=== PATIENT | female | born 1945 | race Caucasian/White ===

== ENCOUNTER 2018-08-06 01:00 | Emergency (ER) | payer MEDICARE ==
[2018-08-06] MEDS ORDERED: Sodium Chloride 0.9% 2.5 ML Syringe FLUSH PRN (01:25)
[2018-08-06] MEDS ORDERED: Sodium Chloride 0.9% 10 ML Syringe FLUSH PRN (01:25)
[2018-08-06] MEDS ORDERED: Morphine 2 MG/ML Syringe IVPUSH ONE (01:26)
[2018-08-06] MEDS ORDERED: Ketorolac 30 MG/ML SDV IVPUSH ONE (01:26)
[2018-08-06] MEDS ORDERED: Sodium Chloride 0.9% 1,000 ML IV ONE (01:26)
[2018-08-06] MEDS ORDERED: Ondansetron 4 MG/2 ML SDV IVPUSH ONE (01:26)
--- NOTE | 2018-08-06 01:29 | EDM.PDOC ---
ED HPI GENERAL MEDICAL PROBLEM - General Chief Complaint: Abdominal Pain Time Seen by Provider: 08/06/18 01:10 - History of Present Illness INITIAL COMMENTS - FREE TEXT/NARRATIVE: HISTORY AND PHYSICAL: History of present illness: The patient is a 72-year-old female with no GI history no abdominal surgical history who presents with complaints of right flank pain radiating to the right upper quadrant that started about 3 hours ago while she was resting at home. Earlier today she had a normal day and last ate food at 6 PM, about 7 hours ago and it was only some crackers. The patient says the pain started in her back and came to the front and does not radiate to the left side does not go to her chest or her right lower abdomen. She's had no urinary complaints such as frequency urgency dysuria or immature area and she did have nausea without vomiting. She's had no diarrhea and has normal bowel movements the last being earlier today which was not black or bloody and not diarrhea. The patient describes the pain as a deep squeezing pain and she says that she is very gassy person but does not feel any differently today. Her abdomen does not feel bloated. She's had no fevers today and she is not taking any medications for these symptoms. She has no history of any food intolerance nor to she take a lot of antacids on a regular basis Review of systems: As per history of present illness and below otherwise all systems reviewed and negative. Past medical history: As per history of present illness and as reviewed below otherwise noncontributory. Surgical history: As per history of present illness and as reviewed below otherwise noncontributory. Social history: No reported history of drug or alcohol abuse. Family history: As per history of present illness and as reviewed below otherwise noncontributory. Physical exam: General: Well-developed well-nourished female who is nontoxic and vital signs are noted by me. She moves easily in the ED without any distress HEENT: Atraumatic, normocephalic, negative for conjunctival pallor or scleral icterus, mucous membranes moist, throat clear, neck supple, nontender, trachea midline. Lungs: Clear to auscultation, breath sounds equal bilaterally, chest nontender. Heart: S1S2, regular rate and rhythm no overt murmurs Abdomen: Soft, nondistended, bowel sounds are slightly hypoactive and there is no tympany on percussion. There is some mild tenderness in the epigastrium and off to the right side slightly on deep palpation without rebound or guarding and the remainder the abdomen is nontender Negative for masses or hepatosplenomegaly. Negative for costovertebral tenderness. Pelvis: Stable nontender. Genitourinary: Deferred. Rectal: Deferred. Extremities: Atraumatic, negative for cords or calf pain. Neurovascular unremarkable. Neuro: Awake, alert, oriented. Cranial nerves II through XII unremarkable. Cerebellum unremarkable. Motor and sensory unremarkable throughout. Exam nonfocal. Diagnostics: CBC CMP amylase lipase H. pylori UA with reflex CT scan of the abdomen and pelvis Therapeutics: IV fluids Zofran Toradol morphine--I was told by nursing that the patient did decline the morphine Discussed with the patient all testing results and will give her antibiotics for her UTI and send a urine culture. She is aware of the CT scan findings revealing one gallstone and the sliding hiatal hernia. I will give her referral to Dr. Doyle in the surgery clinic for further care of this and will advise her to eat a low-fat diet and offer some tramadol for home encase over-the- counter meds do not work Impression: Right flank/right abdominal pain, cholelithiasis, UTI Definitive disposition and diagnosis as appropriate pending reevaluation and review of above. abdominal area Pain Score (Numeric/FACES): 8 - Related Data Allergies Allergy/AdvReac Type Severity Reaction Status Date / Time No Known Allergies Allergy Verified 08/06/18 01:18 Home Meds: Home Meds . 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: Reports: Musculoskeletal History: Reports: None Neurological History: Reports: None Psychiatric History: Reports: None Endocrine/Metabolic History: Reports: None Hematologic History: Reports: None Immunologic History: Reports: None Oncologic (Cancer) History: Reports: None Dermatologic History: Reports: None - Infectious Disease History Infectious Disease History: Reports: None - Past Surgical History Head Surgeries/Procedures: Reports: None HEENT Surgical History: Reports: Tonsillectomy Social & Family History - Family History Family Medical History: Noncontributory - Tobacco Use Smoking Status *Q: Never Smoker - Caffeine Use Caffeine Use: Reports: Coffee - Recreational Drug Use Recreational Drug Use: No ED ROS GENERAL - Review of Systems Review Of Systems: ROS reveals no pertinent complaints other than HPI. ED EXAM, GENERAL - Physical Exam Exam: See Below (see Dictation) Course - Vital Signs Last Recorded V/S: Last Vital Signs Temp 36.1 C 08/06/18 01:15 Pulse 62 08/06/18 01:15 Resp 18 08/06/18 01:15 BP 163/61 H 08/06/18 01:15 Pulse Ox 98 08/06/18 01:15 - Orders/Labs/Meds Orders: Active Orders 24 hr Category Date Time Status CULTURE URINE [RM] Stat Lab 08/06/18 01:10 Received Sodium Chloride 0.9% [Saline Flush] Med 08/06/18 01:25 Active 10 ml FLUSH ASDIRECTED PRN Sodium Chloride 0.9% [Saline Flush] Med 08/06/18 01:25 Active 2.5 ml FLUSH ASDIRECTED PRN Saline Lock Insert [OM.PC] Stat Oth 08/06/18 01:25 Ordered Medication Orders Sodium Chloride (Saline Flush) 10 ml FLUSH ASDIRECTED PRN PRN Reason: Keep Vein Open Sodium Chloride (Saline Flush) 2.5 ml FLUSH ASDIRECTED PRN PRN Reason: Keep Vein Open Labs: Laboratory Tests 08/06/18 08/06/18 08/06/18 Range/Units 01:10 01:26 01:26 WBC 9.87 (4.0-11.0) K/uL RBC 5.21 (4.30-5.90) M/uL Hgb 15.2 (12.0-16.0) g/dL Hct 46.0 (36.0-46.0) % MCV 88.3 (80.0-98.0) fL MCH 29.2 (27.0-32.0) pg MCHC 33.0 (31.0-37.0) g/dL RDW Std Deviation 41.8 (28.0-62.0) fl RDW Coeff of Letty 13 (11.0-15.0) % Plt Count 262 (150-400) K/uL MPV 10.70 (7.40-12.00) fL Neut % (Auto) 76.8 (48.0-80.0) % Lymph % (Auto) 14.5 L (16.0-40.0) % Trimble % (Auto) 7.7 (0.0-15.0) % Eos % (Auto) 0.9 (0.0-7.0) % Baso % (Auto) 0.1 (0.0-1.5) % Neut # (Auto) 7.6 H (1.4-5.7) K/uL Lymph # (Auto) 1.4 (0.6-2.4) K/uL Trimble # (Auto) 0.8 (0.0-0.8) K/uL Eos # (Auto) 0.1 (0.0-0.7) K/uL Baso # (Auto) 0.0 (0.0-0.1) K/uL Sodium 140 (136-145) mmol/L Potassium 3.8 (3.5-5.1) mmol/L Chloride 103 (98-107) mmol/L Carbon Dioxide 28.0 (21.0-32.0) mmol/L BUN 16 (7.0-18.0) mg/dL Creatinine 0.7 (0.6-1.0) mg/dL Est Cr Clr Drug Dosing 58.30 mL/min Estimated GFR (MDRD) > 60.0 ml/min Glucose 143 H (74-106) mg/dL Calcium 8.9 (8.5-10.1) mg/dL Total Bilirubin 0.5 (0.2-1.0) mg/dL AST 17 (15-37) IU/L ALT 26 (14-63) IU/L Alkaline Phosphatase 63 (46-116) U/L Total Protein 7.5 (6.4-8.2) g/dL Albumin 4.0 (3.4-5.0) g/dL Globulin 3.5 (2.6-4.0) g/dL Albumin/Globulin Ratio 1.1 (0.9-1.6) Amylase 54 (25-115) U/L Lipase 170 (73-393) U/L Urine Color YELLOW Urine Appearance SLT CLOUDY Urine pH 6.0 (5.0-8.0) Ur Specific Drake 1.025 (1.001-1.035) Urine Protein NEGATIVE (NEGATIVE) mg/dL Urine Glucose (UA) NEGATIVE (NEGATIVE) mg/dL Urine Ketones 15 H (NEGATIVE) mg/dL Urine Occult Blood TRACE-LYSED H (NEGATIVE) Urine Nitrite NEGATIVE (NEGATIVE) Urine Bilirubin NEGATIVE (NEGATIVE) Urine Urobilinogen 0.2 (<2.0) EU/dL Ur Leukocyte Esterase MODERATE H (NEGATIVE) Urine RBC 0-2 (0-2/HPF) Urine WBC 2-5 (0-5/HPF) Ur Epithelial Cells MODERATE (NONE-FEW) Urine Bacteria FEW (NEGATIVE) Urinalysis Comment H. pylori IgG Antibody (NEG) 08/06/18 Range/Units 01:26 WBC (4.0-11.0) K/uL RBC (4.30-5.90) M/uL Hgb (12.0-16.0) g/dL Hct (36.0-46.0) % MCV (80.0-98.0) fL MCH (27.0-32.0) pg MCHC (31.0-37.0) g/dL RDW Std Deviation (28.0-62.0) fl RDW Coeff of Letty (11.0-15.0) % Plt Count (150-400) K/uL MPV (7.40-12.00) fL Neut % (Auto) (48.0-80.0) % Lymph % (Auto) (16.0-40.0) % Trimble % (Auto) (0.0-15.0) % Eos % (Auto) (0.0-7.0) % Baso % (Auto) (0.0-1.5) % Neut # (Auto) (1.4-5.7) K/uL Lymph # (Auto) (0.6-2.4) K/uL Trimble # (Auto) (0.0-0.8) K/uL Eos # (Auto) (0.0-0.7) K/uL Baso # (Auto) (0.0-0.1) K/uL Sodium (136-145) mmol/L Potassium (3.5-5.1) mmol/L Chloride (98-107) mmol/L Carbon Dioxide (21.0-32.0) mmol/L BUN (7.0-18.0) mg/dL Creatinine (0.6-1.0) mg/dL Est Cr Clr Drug Dosing mL/min Estimated GFR (MDRD) ml/min Glucose (74-106) mg/dL Calcium (8.5-10.1) mg/dL Total Bilirubin (0.2-1.0) mg/dL AST (15-37) IU/L ALT (14-63) IU/L Alkaline Phosphatase (46-116) U/L Total Protein (6.4-8.2) g/dL Albumin (3.4-5.0) g/dL Globulin (2.6-4.0) g/dL Albumin/Globulin Ratio (0.9-1.6) Amylase (25-115) U/L Lipase (73-393) U/L Urine Color Urine Appearance Urine pH (5.0-8.0) Ur Specific Drake (1.001-1.035) Urine Protein (NEGATIVE) mg/dL Urine Glucose (UA) (NEGATIVE) mg/dL Urine Ketones (NEGATIVE) mg/dL Urine Occult Blood (NEGATIVE) Urine Nitrite (NEGATIVE) Urine Bilirubin (NEGATIVE) Urine Urobilinogen (<2.0) EU/dL Ur Leukocyte Esterase (NEGATIVE) Urine RBC (0-2/HPF) Urine WBC (0-5/HPF) Ur Epithelial Cells (NONE-FEW) Urine Bacteria (NEGATIVE) Urinalysis Comment H. pylori IgG Antibody NEGATIVE (NEG) Meds: Medications Generic Name Dose Route Start Last Admin Trade Name Chelsie PRN Reason Stop Dose Admin Sodium Chloride 10 ml 08/06/18 01:25 Saline Flush FLUSH ASDIRECTED PRN Keep Vein Open Sodium Chloride 2.5 ml 08/06/18 01:25 Saline Flush FLUSH ASDIRECTED PRN Keep Vein Open Discontinued Medications Generic Name Dose Route Start Last Admin Trade Name Chelsie PRN Reason Stop Dose Admin Sodium Chloride 1,000 mls @ 999 mls/hr 08/06/18 01:26 08/06/18 01:33 Normal Saline IV 08/06/18 02:26 999 mls/hr STAT ONE Administration Iopamidol 100 ml 08/06/18 02:28 08/06/18 02:29 Isovue Multipack-370 (76%) IVPUSH 08/06/18 02:29 100 ml ONETIME STA Administration Ketorolac Tromethamine 30 mg 08/06/18 01:08/06/18 01:33 Toradol IVPUSH 08/06/18 01:27 30 mg ONETIME ONE Administration Morphine Sulfate 2 mg 08/06/18 01:08/06/18 01:37 Morphine IVPUSH 08/06/18 01:27 Not Given ONETIME ONE Ondansetron HCl 4 mg 08/06/18 01:26 08/06/18 01:33 Zofran IVPUSH 08/06/18 01:27 4 mg ONETIME ONE Administration Departure - Departure Time of Disposition: 02:59 Disposition: Home, Self-Care 01 Condition: Good Clinical Impression: Cholelithiasis Qualifiers: Cholelithiasis location: gallbladder Cholecystitis presence: without cholecystitis Biliary obstruction: without biliary obstruction Qualified Code(s) : K80.20 - Calculus of gallbladder without cholecystitis without obstruction UTI (urinary tract infection) Qualifiers: Urinary tract infection type: site unspecified Hematuria presence: without hematuria Qualified Code(s): N39.0 - Urinary tract infection, site not specified - Discharge Information Referrals: PCP,None [Primary Care Provider] - Forms: ED Department Discharge Additional Instructions: The following information is given to patients seen in the emergency department who are being discharged to home. This information is to outline your options for follow-up care. We provide all patients seen in our emergency department with a follow-up referral. The need for follow-up, as well as the timing and circumstances, are variable depending upon the specifics of your emergency department visit. If you don't have a primary care physician on staff, we will provide you with a referral. We always advise you to contact your personal physician following an emergency department visit to inform them of the circumstance of the visit and for follow-up with them and/or the need for any referrals to a consulting specialist. The emergency department will also refer you to a specialist when appropriate. This referral assures that you have the opportunity for followup care with a specialist. All of these measure are taken in an effort to provide you with optimal care, which includes your followup. Under all circumstances we always encourage you to contact your private physician who remains a resource for coordinating your care. When calling for followup care, please make the office aware that this follow-up is from your recent emergency room visit. If for any reason you are refused follow-up, please contact the [facility] emergency department at and ask to speak to the emergency department charge nurse. [facility] Professional Building [address] [place] [id number] Please eat a low-fat diet as we discussed and push hydration. Take the antibiotics as prescribed from [facility], ciprofloxacin, for the urinary tract infection and use [id number] Tylenol ibuprofen/Motrin for pain. You have also been given tramadol/Ultram from [facility] to use for breakthrough pain if the [id number] meds do not work. Push hydration and return to ER as needed and as discussed. Please call and schedule a follow-up appointment in the surgery clinic for further evaluation of your gallstone and further care. - My Orders Last 24 Hours: My Active Orders 08/06/18 01:10 CULTURE URINE [RM] Stat 08/06/18 01:25 Sodium Chloride 0.9% [Saline Flush] 10 ml FLUSH ASDIRECTED PRN Sodium Chloride 0.9% [Saline Flush] 2.5 ml FLUSH ASDIRECTED PRN Saline Lock Insert [OM.PC] Stat - Assessment/Plan Last 24 Hours: My Active Orders 08/06/18 01:10 CULTURE URINE [RM] Stat 08/06/18 01:25 Sodium Chloride 0.9% [Saline Flush] 10 ml FLUSH ASDIRECTED PRN Sodium Chloride 0.9% [Saline Flush] 2.5 ml FLUSH ASDIRECTED PRN Saline Lock Insert [OM.PC] Stat
[2018-08-06 01:58] LABS: CHLORIDE,CL 103 mmol/L (98-107); SODIUM,NA 140 mmol/L (136-145)
[2018-08-06] MEDS ORDERED: Iopamidol 755 MG/ML 500 ML Multipack Bottle IVPUSH STA (02:28)
--- NOTE | 2018-08-06 02:54 | CT ---
INDICATION: Right side abdominal pain TECHNIQUE: CT Abdomen and pelvis with i.v. contrast. Coronal and sagittal reformats were obtained. CONTRAST: 100 mL Isovue 370 COMPARISON: None FINDINGS: Lower chest: Minimal left basilar atelectasis is seen. Liver: Unremarkable. Spleen: Unremarkable. Pancreas: Unremarkable. Gallbladder: A 1.9 cm gallstone is present with mild gallbladder wall thickening seen. Kidney: Parapelvic cysts are present within the left renal sinus. Both kidneys are normal in enhancement. Adrenal: Unremarkable. Bowel: Small sliding type esophageal hiatal hernia (type I) is present. The appendix is normal in appearance and size. Vascular: Unremarkable. Lymph: Unremarkable. Peritoneum: Unremarkable. No pneumoperitoneum is seen. No significant ascites is noted. Pelvis: Unremarkable. Soft tissue: Unremarkable. Bone: Unremarkable for age. IMPRESSION: 1. A 1.9 cm gallstone is present with mild gallbladder wall thickening seen. If there is focal pain or tenderness, evaluation with ultrasound is recommended. Dictated by Gt Dyer MD @ 08/06/2018 2:52:25 AM Please note that all CT scans at this facility use dose modulation, iterative reconstruction, and/or weight-based dosing when appropriate to reduce radiation dose to as low as reasonably achievable. Dictated by: Gt Dyer MD @ 08/06/2018 02:52:28 (Electronically Signed)
== END 2018-08-06 03:14 | disposition home or self-care (01) ==
LOC: MW.ED 01:00
DX: K80.20 Calculus of gallbladder without cholecystitis without obstruction (principal); N39.0 Urinary tract infection, site not specified
CPT/HCPCS: 36415; 74177; 80053; 81001; 82150; 83690; 85025; 86677; 87086; 96361; 96374; 96375; 99284; J1885; J2405; J7040; Q9967

== ENCOUNTER 2018-08-26 06:17 | Day surgery (SDC) | payer MEDICARE ==
[~2018-08-26 06:17] MED LIST: Lactated Ringers 1,000 ML IV SCH; Sodium Chloride 0.9% 10 ML SDV IV PRN; Sodium Chloride 0.9% 10 ML Syringe FLUSH PRN; Sodium Chloride 0.9% 2.5 ML Syringe FLUSH PRN; ceFAZolin 2 GM in Premix Bag 1 BAG IV ONE
[2018-08-26] MEDS ORDERED: Scopolamine 1.5 MG Transdermal Patch TRDERM ONE (06:53)
[2018-08-26] MEDS ORDERED: Scopolamine 1.5 MG Transdermal Patch ONE (06:58)
--- NOTE | 2018-08-26 06:59 | PCM.PREANE ---
Preanesthetic Assessment - Anesthesia/Transfusion/Family Hx Anesthesia History: Prior Anesthesia Without Reaction Family History of Anesthesia Reaction: No Transfusion History: No Prior Transfusion(s) Intubation History: Unknown - Review of Systems General: No Symptoms Pulmonary: No Symptoms Cardiovascular: No Symptoms Gastrointestinal: Abdominal Pain Neurological: No Symptoms Other: Reports: None - Physical Assessment O2 Sat by Pulse Oximetry: 96 Respiratory Rate: 15 Vital Signs: Last Vital Signs Temp 36.6 C 08/26/18 06:45 Pulse 79 08/26/18 06:45 Resp 15 08/26/18 06:45 BP 149/67 H 08/26/18 06:45 Pulse Ox 96 08/26/18 06:45 Height: 5 ft 2 in Weight: 76.657 kg ASA Class: 2 Mental Status: Alert & Oriented x3 Airway Class: Mallampati = 2 Dentition: Reports: Normal Dentition, Thoreau(s) (x2 or 3 on the back side) Thyro-Mental Finger Breadths: 3 Mouth Opening Finger Breadths: 3 ROM/Head Extension: Full Lungs: Clear to Auscultation, Normal Respiratory Effort Cardiovascular: Regular Rate, Regular Rhythm - Allergies Allergies/Adverse Reactions: Allergies Allergy/AdvReac Type Severity Reaction Status Date / Time No Known Allergies Allergy Verified 08/06/18 01:18 - Blood Blood Available: No - Anesthesia Plan Pre-Op Medication Ordered: None - Acknowledgements Anesthesia Type Planned: General Anesthesia Pt an Appropriate Candidate for the Planned Anesthesia: Yes Alternatives and Risks of Anesthesia Discussed w Pt/Guardian: Yes Pt/Guardian Understands and Agrees with Anesthesia Plan: Yes PreAnesthesia Questionnaire HEENT History: Reports: None Cardiovascular History: Reports: None Respiratory History: Reports: None Gastrointestinal History: Reports: Cholelithiasis Genitourinary History: Reports: None [employer] History: Reports: Musculoskeletal History: Reports: None Neurological History: Reports: None Psychiatric History: Reports: None Endocrine/Metabolic History: Reports: Obesity/BMI 30+ Hematologic History: Reports: None Immunologic History: Reports: None Oncologic (Cancer) History: Reports: Basal Cell Carcinoma Other Oncologic History: basal cell ca removed from nose Dermatologic History: Reports: None - Infectious Disease History Infectious Disease History: Reports: None - Past Surgical History Head Surgeries/Procedures: Reports: None HEENT Surgical History: Reports: Tonsillectomy Cardiovascular Surgical History: Reports: None Respiratory Surgical History: Reports: None GI Surgical History: Reports: None Female Surgical History: Reports: None Endocrine Surgical History: Reports: None Neurological Surgical History: Reports: None Musculoskeletal Surgical History: Reports: None Oncologic Surgical History: Reports: None Dermatological Surgical History: Reports: Skin Biopsy - SUBSTANCE USE Smoking Status *Q: Never Smoker Recreational Drug Use History: No - HOME MEDS Home Medications: Home Meds Acetaminophen [Tylenol] 2 tab PO ASDIRECTED PRN 08/22/18 [History] - CURRENT (IN HOUSE) MEDS Current Meds: Current Medications Lactated Ringer's (Ringers, Lactated) 1,000 mls @ 125 mls/hr IV ASDIRECTED RUSTY Last Admin: 08/26/18 06:49 Dose: 125 mls/hr Scopolamine (Transderm-Scop) 1.5 mg TRDERM ONETIME ONE Stop: 08/26/18 06:54 Sodium Chloride (Saline Flush) 10 ml FLUSH ASDIRECTED PRN PRN Reason: Keep Vein Open Sodium Chloride (Saline Flush) 2.5 ml FLUSH ASDIRECTED PRN PRN Reason: Keep Vein Open Sodium Chloride (Normal Saline) 10 ml IV ASDIRECTED PRN PRN Reason: IV Use Discontinued Medications Cefazolin Sodium/Dextrose 2 gm (/ Premix) 50 mls @ 100 mls/hr IV ONETIME ONE Stop: 08/25/18 09:16
[2018-08-26] MEDS ORDERED: fentaNYL 250 MCG/5 ML SDV ONE (07:05)
[2018-08-26] MEDS ORDERED: Midazolam 1 MG/ML 2 ML SDV ONE (07:05)
[2018-08-26] MEDS ORDERED: Propofol 200 MG/20 ML SDV ONE (07:05)
[2018-08-26] MEDS ORDERED: Scopolamine 1.5 MG Transdermal Patch TRDERM PRN (07:12)
[2018-08-26] MEDS ORDERED: Bupivacaine 0.5% 30 ML SDV ONE (07:21)
[2018-08-26] MEDS ORDERED: Rocuronium 100 MG/10 ML Syringe ONE (07:31)
[2018-08-26] MEDS ORDERED: ceFAZolin/Dextrose,Iso-Osmotic 2 GM/50 ML Duplex Bag IV ONE (07:31)
[2018-08-26] MEDS ORDERED: Ondansetron 4 MG/2 ML SDV ONE (07:41)
[2018-08-26] MEDS ORDERED: Dexamethasone 4 MG/ML 5 ML MDV ONE (07:41)
[2018-08-26] MEDS ORDERED: Neostigmine Methylsulfate 1 MG/ML 5 ML Syringe ONE (07:41)
[2018-08-26] MEDS ORDERED: Glycopyrrolate 0.2 MG/ML SDV ONE ×2 (07:41→08:25)
[2018-08-26] MEDS ORDERED: Phenylephrine/Normal Saline 100 MCG/ML 10 ML Syringe ONE (08:13)
[2018-08-26] MEDS ORDERED: ePHEDrine 50 MG/ML SDV ONE (08:14)
[2018-08-26] MEDS ORDERED: fentaNYL 100 MCG/2 ML SDV IVPUSH PRN (08:33)
[2018-08-26] MEDS ORDERED: Ketorolac 30 MG/ML SDV ONE (09:53)
--- NOTE | 2018-08-26 09:59 | PCM.OPNOTE ---
- General Post-Op/Procedure Note Date of Surgery/Procedure: 08/26/18 Operative Procedure(s): Laparoscopic cholecystectomy Findings: Acutely inflamed and enlarged gallbladder consistent with acute cholecystitis Pre Op Diagnosis: Symptomatic cholelithiasis Post-Op Diagnosis: Acute cholecystitis Anesthesia Technique: General ET Tube Primary Surgeon: Stephany Cruz Fluid Replacement, Intraop: 1,400 Output, Urine Amount: 500 EBL in mLs: 25 Condition: Good
--- NOTE | 2018-08-26 10:55 | OR ---
SURGEON: STEPHANY CRUZ MD DATE OF PROCEDURE: 08/26/2018 PREOPERATIVE DIAGNOSIS: Symptomatic cholelithiasis. POSTOPERATIVE DIAGNOSIS: Acute cholecystitis with cholelithiasis. PROCEDURE PERFORMED: Laparoscopic cholecystectomy. PRIMARY SURGEON: Stephany Cruz MD. ANESTHESIA: General endotracheal anesthesia. FLUIDS: 1400 mL crystalloid. ESTIMATED BLOOD LOSS: 25 mL. URINE OUTPUT: 500 mL. FINDINGS: Acutely inflamed and enlarged gallbladder encased in omentum and adhered to the duodenal wall. COMPLICATIONS: None. INDICATIONS: The patient is a 72-year-old female who recently presented to the emergency room with acute onset of abdominal pain. She was worked up and found to have symptomatic cholelithiasis with no evidence of cholecystitis. The patient and I discussed the Pathophysiology of biliary disease. I explained the need for a cholecystectomy. We discussed both the open and laparoscopic approaches. I will attempt it laparoscopically, but should I be unable to perform it safely, I will convert it to open. The patient and I discussed the expected perioperative course as well as the risks including bleeding, infection, or damage to surrounding structures. She verbalized understanding and wishes to proceed. PROCEDURE IN DETAIL: The patient was brought into the OR and placed on the OR table in supine position. A time-out was completed verifying the patient's name, age, date of , allergies, and procedure to be performed. General endotracheal anesthesia was induced. The left arm was tucked to the patient's side and a Woodard catheter placed. The abdomen was prepped and draped in usual standard fashion. I anesthetized the infraumbilical fold with 0.5% Marcaine plain. An 11 blade was used to make an incision along this fold. Cautery was used to dissect down to the level of the subcutaneous fat. I bluntly dissected down to the level of the fascia. The fascia was elevated with Jovanny's and incised sharply with Metzenbaum scissors. I then identified the posterior rectus sheath. This was grasped with hemostats and incised sharply as well. The peritoneum was then elevated likewise and incised. Entry into the abdomen was palpated digitally. I placed stay sutures on either side of the fascia with 0 Vicryl. A 12 mm Macy trocar was placed in the abdomen. The abdomen was insufflated. A 5 mm 30 degree scope was inserted and I inspected the area underneath my initial trocar placement. No damage to surrounding structures was noted. The patient was placed into reverse Trendelenburg position. She was airplaned slightly to the left. 5 mm trocars were placed under direct visualization in the following locations; one in the epigastric area, one in the right flank, and one 2 fingerbreadths below the right subcostal margin in the midclavicular line. The dome of the gallbladder was grasped with an atraumatic grasper and elevated. The entire body of the gallbladder was encased in thickened inflamed omentum. I was able to sweep this down using an endoscopic Kittner. As I dissected more proximally, I could identify the duodenum adhered to the proximal half of the gallbladder wall. Using an endoscopic Kittner, I was able to take these adhesions down. Once the gallbladder was freed from its surrounding adhesions, I elevated it cranially and identified the infundibulum. The infundibulum was encased in thickened and inflamed fat as well. Using a combination of hook cautery and blunt dissection, I was able to tease away this thickened fat and identify my cystic duct and artery. I carefully dissected up the cystic plate. Once I cleared away one-third of the cystic plate, I could clearly see my critical view. A photograph was taken. I doubly clipped and ligated the cystic artery. I triply clipped and ligated the cystic duct. The gallbladder was then removed from its remaining liver bed attachments with electrocautery. At one point, I did get into the gallbladder and a small amount of bile was spilled. The gallbladder was then placed in an EndoCatch bag and removed through the infraumbilical port site. I then replaced my trocar and inspected my operative field. Hemostasis was achieved with electrocautery along the liver bed. I irrigated the abdomen with 1 L of normal saline until it ran clear. I then inspected my clips and they appeared to be in good place. There appeared to be no further bleeding and no bile leakage. The 5 mm trocars were removed under direct visualization and the abdomen allowed to desufflate. The 12 mm Macy trocar was removed as well. The fascia at the infraumbilical port site was closed with interrupted 0 Vicryl sutures. This superficial fat was closed with a running 3-0 Vicryl suture. The skin was closed with running 4-0 Monocryl stitch. The 5 mm trocar sites were closed with interrupted 4-0 Monocryl sutures. Steri-Strips and sterile dressings were applied. The patient tolerated the procedure well and was transferred to the PACU in stable condition. All counts were complete and correct at the end of the case. OMAIRA WILEY /[id number]
--- NOTE | 2018-08-26 13:08 | PCM48HPAN ---
Post Anesthesia Note - EVALUATION WITHIN 48HRS OF ANESTHETIC Vital Signs in Normal Range: Yes Patient Participated in Evaluation: Yes Respiratory Function Stable: Yes Airway Patent: Yes Cardiovascular Function Stable: Yes Hydration Status Stable: Yes Pain Control Satisfactory: Yes Nausea and Vomiting Control Satisfactory: Yes Mental Status Recovered: Yes Resp Rate: 15 - COMMENTS/OBSERVATIONS Free Text/Narrative:: No anesthesia problems
== END 2018-08-26 12:58 | disposition home or self-care (01) ==
LOC: MW.SDS 06:17
PROVIDERS: ATTEND Surgery
DX: K80.12 Calculus of gallbladder with acute and chronic cholecystitis without obstruction (principal); Z79.899 Other long term (current) drug therapy
CPT/HCPCS: A9270-GY; J0131; J0330; J0690; J1100; J1885; J2001; J2250; J2370; J2405; J2704; J3010; J3490; J7120